=== PATIENT | male | born 1955 | race Hispanic/Latino ===

== ENCOUNTER 2021-12-12 13:09 | Emergency (ER) | payer BC, SELFPAY ==
[2021-12-12 13:51] LABS: #Basophils 0.1 thou/uL (0.0-0.2); #Eosinphils 0.3 thou/uL (0.0-0.7); #Lymphocytes 2.9 thou/uL (1.20-3.40); #Monocytes 0.6 thou/uL (0.11-0.59); %Basophils 0.9 % (0.0-1.0); %Eosinophils 3.7 % (0.0-10.0); %Lymphocytes 32.3 % (21.0-51.0); %Monocytes 6.5 % (0.0-10.0); %Neutrophils 56.5 % (42.0-75.0); Mean Corpuscular HGB CONC 32.2 g/dL (32.0-36.0); Mean Corpuscular Hemoglobin 29.1 pg (27.0-31.0); Mean Corpuscular Volume 90.5 fL (78.0-98.0); Mean Platelet Volume 8.5 fL (7.4-10.4); Platelet Count 241 thou/uL (130-400); RBC Distribution Width 12.7 % (11.5-14.5); Red Blood Cell (RBC) Count 5.16 mill/uL (4.70-6.10); White Blood Cell (WBC) Count 8.9 thou/uL (4.8-10.8)
[2021-12-12 14:12] LABS: ALT (SGPT) 14 U/L (8-55); AST (SGOT) 16 U/L (5-34); Alkaline Phosphatase 52 U/L (40-110); Anion Gap 15 mmol/L (10-20); BUN (Urea Nitrogen) 20 mg/dL (8.4-25.7); Bilirubin, Total 0.7 mg/dL (0.2-1.2); Calc. Creatinine Clearance 0 mL/min (70-130); Calcium 9.5 mg/dL (7.8-10.44); Carbon Dioxide 26 mmol/L (23-31); Chloride 101 mmol/L (98-107); Estimated GFR 63; Globulin 3.7 g/dL (2.4-3.5); Glucose 176 mg/dL (80-115); Potassium 4.5 mmol/L (3.5-5.1); Protein, Total 7.7 g/dL (5.8-8.1); Sodium 137 mmol/L (136-145)
== END 2021-12-12 16:31 | disposition home or self-care (01) ==
LOC: ERS 13:09
DX: E11.621 Type 2 diabetes mellitus with foot ulcer (principal); L97.529 Non-pressure chronic ulcer of other part of left foot with unspecified severity; L03.031 Cellulitis of right toe; I10 Essential (primary) hypertension
CPT/HCPCS: 36415; 80053; 83605; 85025; 99283

== ENCOUNTER 2023-04-18 21:48 | Inpatient (IN) | payer OTHER, SELFPAY ==
[2023-04-18 23:51] VITALS: BMI 27.5
[2023-04-19] MEDS ORDERED: Dextrose 5% in Water 1,000 ML IV PRN (01:21)
[2023-04-19] MEDS ORDERED: Ondansetron PF 4 MG/2 ML Vial IVP PRN (01:21)
[2023-04-19] MEDS ORDERED: HumaLOG 300 UNITS/3 ML VIAL SC PRN (01:21)
[2023-04-19] MEDS ORDERED: Ondansetron ODT 4 MG TAB PO PRN (01:21)
[2023-04-19] MEDS ORDERED: Dextrose 50% Abboject 50 ML SYRINGE SLOW IVP PRN (01:21)
[2023-04-19] MEDS ORDERED: Acetaminophen 650 MG Suppository PR PRN (01:21)
[2023-04-19] MEDS ORDERED: Glucagon 1 MG/ML KIT IM PRN (01:21)
[2023-04-19] MEDS: Sodium Chloride 0.9% 1,000 ML IV SCH ×2 (02:22→10:44)
[2023-04-19] MEDS: Piperacillin/Tazobactam 3.375 GM in Sodium Chloride 0.9% 100 ML IVPB SCH ×3 (03:05→17:47)
[2023-04-19] MEDS: Vancomycin (BATCH) 1.25 GM in Premix 1 BAG IVPB SCH ×2 (03:06→13:22)
[2023-04-19] MEDS: Acetaminophen 325 MG TAB PO PRN ×2 (03:49→16:49)
[2023-04-19] MEDS ORDERED: Ketorolac Tromethamine 30 MG/ML VIAL IVP PRN (04:41)
[2023-04-19 06:05] LABS: #Basophils 0.1 thou/uL (0.0-0.2); #Eosinphils 0.1 thou/uL (0.0-0.7); #Monocytes 1.5 thou/uL (0.11-0.59); #Neutrophils 11.9 thou/uL (1.40-6.50); %Basophils 0.6 % (0.0-1.0); %Eosinophils 0.5 % (0.0-10.0); %Lymphocytes 15.1 % (21.0-51.0); %Monocytes 9.5 % (0.0-10.0); %Neutrophils 73.9 % (42.0-75.0); Hematocrit 38.9 % (42.0-52.0); Mean Corpuscular HGB CONC 33.4 g/dL (32.0-36.0); Mean Corpuscular Hemoglobin 28.4 pg (27.0-31.0); Mean Corpuscular Volume 85.1 fl (78.0-98.0); Platelet Count 265 10x3/uL (130-400); RBC Distribution Width 13.5 % (11.5-14.5); Red Blood Cell (RBC) Count 4.57 mill/uL (4.70-6.10)
[2023-04-19 06:37] LABS: Anion Gap 12 mmol/L (10-20); BUN (Urea Nitrogen) 17 mg/dL (8.4-25.7); Calc. Creatinine Clearance 71 mL/min (70-130); Calcium 8.1 mg/dL (7.8-10.44); Carbon Dioxide 23 mmol/L (23-31); Chloride 103 mmol/L (98-107); Estimated GFR 65; Glucose 122 mg/dL (80-115); Potassium 3.4 mmol/L (3.5-5.1); Sodium 135 mmol/L (136-145)
[2023-04-19] MEDS ORDERED: Pantoprazole 40 MG VIAL IVP SCH (09:00)
[2023-04-19] MEDS: Lisinopril 10 MG TAB PO SCH (09:11)
[2023-04-19] MEDS: Fish Oil 1,000 MG CAP PO SCH ×2 (09:11→21:13)
[2023-04-19] MEDS ORDERED: Potassium Chloride 20 MEQ TAB PO SCH (13:00)
[2023-04-19] MEDS: HumaLOG 300 UNITS/3 ML VIAL SC PRN (13:23)
[2023-04-19] MEDS: glipiZIDE 5 MG TAB PO SCH (16:49)
[2023-04-19] MEDS ORDERED: METFORMIN PO SCH (17:00)
[2023-04-19] MEDS ORDERED: CANAGLIFLOZIN PO SCH (17:00)
[2023-04-19] MEDS ORDERED: [UNRECOGNIZED DRUG - OTHER] PO SCH (17:00)
[2023-04-19] MEDS ORDERED: Gabapentin 100 MG CAP PO PRN (17:38)
[2023-04-19] MEDS: Gabapentin 100 MG CAP PO PRN (17:46)
[2023-04-19] MEDS ORDERED: Ibuprofen 200 MG TAB PO SCH (18:15)
[2023-04-20] MEDS: Vancomycin (BATCH) 1.25 GM in Premix 1 BAG IVPB SCH ×2 (02:02→14:57)
[2023-04-20] MEDS: Piperacillin/Tazobactam 3.375 GM in Sodium Chloride 0.9% 100 ML IVPB SCH ×3 (02:11→17:34)
[2023-04-20] MEDS: Acetaminophen 325 MG TAB PO PRN ×2 (04:50→16:37)
[2023-04-20 05:48] LABS: #Basophils 0.1 thou/uL (0.0-0.2); #Eosinphils 0.2 thou/uL (0.0-0.7); #Monocytes 1.3 thou/uL (0.11-0.59); #Neutrophils 13.1 thou/uL (1.40-6.50); %Basophils 0.4 % (0.0-1.0); %Eosinophils 0.9 % (0.0-10.0); %Lymphocytes 9.3 % (21.0-51.0); Hematocrit 40.2 % (42.0-52.0); Hemoglobin 13.3 g/dL (14.0-18.0); Mean Corpuscular HGB CONC 33.1 g/dL (32.0-36.0); Mean Corpuscular Hemoglobin 28.1 pg (27.0-31.0); Mean Corpuscular Volume 84.8 fl (78.0-98.0); Mean Platelet Volume 10.1 fL (7.4-10.4); Platelet Count 279 10x3/uL (130-400); RBC Distribution Width 13.3 % (11.5-14.5); Red Blood Cell (RBC) Count 4.74 mill/uL (4.70-6.10); White Blood Cell (WBC) Count 16.1 10x3/uL (4.8-10.8)
[2023-04-20 06:30] LABS: Anion Gap 14 mmol/L (10-20); BUN (Urea Nitrogen) 18 mg/dL (8.4-25.7); Calc. Creatinine Clearance 70 mL/min (70-130); Calcium 8.5 mg/dL (7.8-10.44); Carbon Dioxide 21 mmol/L (23-31); Chloride 104 mmol/L (98-107); Estimated GFR 64; Glucose 124 mg/dL (80-115); Sodium 135 mmol/L (136-145)
[2023-04-20] MEDS: glipiZIDE 5 MG TAB PO SCH ×2 (06:30→16:37)
[2023-04-20] MEDS: Lisinopril 10 MG TAB PO SCH (08:36)
[2023-04-20] MEDS: Fish Oil 1,000 MG CAP PO SCH ×2 (08:36→20:55)
[2023-04-20 13:32] LABS: Vancomycin, Trough 17.9 ug/mL
[2023-04-20] MEDS ORDERED: Polyethylene Glycol 3350 17 GM Packet PO SCH (18:00)
[2023-04-20] MEDS: Ibuprofen 200 MG TAB PO PRN (18:11)
[2023-04-20] MEDS: hydrALAZINE 25 MG TAB PO SCH (20:54)
[2023-04-21] MEDS: Piperacillin/Tazobactam 3.375 GM in Sodium Chloride 0.9% 100 ML IVPB SCH ×3 (01:01→17:20)
[2023-04-21] MEDS: Vancomycin (BATCH) 1.25 GM in Premix 1 BAG IVPB SCH ×2 (01:02→14:47)
[2023-04-21 06:52] LABS: #Basophils 0.1 thou/uL (0.0-0.2); #Eosinphils 0.4 thou/uL (0.0-0.7); #Monocytes 1.3 thou/uL (0.11-0.59); #Neutrophils 10.7 thou/uL (1.40-6.50); %Basophils 0.5 % (0.0-1.0); %Eosinophils 2.9 % (0.0-10.0); %Lymphocytes 14.1 % (21.0-51.0); %Monocytes 8.6 % (0.0-10.0); %Neutrophils 73.5 % (42.0-75.0); Hematocrit 38.9 % (42.0-52.0); Hemoglobin 13.3 g/dL (14.0-18.0); Mean Corpuscular HGB CONC 34.2 g/dL (32.0-36.0); Mean Corpuscular Hemoglobin 28.4 pg (27.0-31.0); Mean Corpuscular Volume 83.1 fl (78.0-98.0); Platelet Count 314 10x3/uL (130-400); RBC Distribution Width 13.2 % (11.5-14.5); Red Blood Cell (RBC) Count 4.68 mill/uL (4.70-6.10); White Blood Cell (WBC) Count 14.6 10x3/uL (4.8-10.8)
[2023-04-21 07:18] LABS: Anion Gap 12 mmol/L (10-20); BUN (Urea Nitrogen) 14 mg/dL (8.4-25.7); Calc. Creatinine Clearance 84 mL/min (70-130); Calcium 8.6 mg/dL (7.8-10.44); Carbon Dioxide 26 mmol/L (23-31); Chloride 102 mmol/L (98-107); Estimated GFR 80; Glucose 128 mg/dL (80-115); Potassium 3.8 mmol/L (3.5-5.1); Sodium 136 mmol/L (136-145)
[2023-04-21] MEDS ORDERED: Promethazine HCl 25 MG/ML VIAL IM PRN (07:53)
[2023-04-21] MEDS ORDERED: Ondansetron HCl/PF 4 MG/2 ML Vial IVP PRN (07:53)
[2023-04-21] MEDS ORDERED: Meperidine HCl/PF 25 MG/ML VIAL SLOW IVP PRN ×2 (07:53)
[2023-04-21] MEDS ORDERED: HYDROmorphone 2 MG/ML VIAL SLOW IVP PRN (07:53)
[2023-04-21] MEDS ORDERED: Lidocaine 1% PF 5 ML VIAL ONE ×2 (07:59→08:00)
[2023-04-21] MEDS ORDERED: PROPOFOL 200 MG/20 ML VIAL ONE (07:59)
[2023-04-21] MEDS ORDERED: Ondansetron PF 4 MG/2 ML Vial ONE ×2 (07:59→08:00)
[2023-04-21] MEDS ORDERED: ePHEDrine Sulfate 50 MG/10 ML VIAL ONE ×2 (07:59→08:26)
[2023-04-21] MEDS ORDERED: PROPOFOL 20 ML ONE (08:00)
[2023-04-21] MEDS ORDERED: fentaNYL 50 mcg/mL 1 mL Vial ONE (08:00)
[2023-04-21] MEDS ORDERED: Midazolam HCl 2 mg/2 ml Vial ONE (08:00)
[2023-04-21] MEDS ORDERED: Polyethylene Glycol 3350 17 GM Packet PO SCH (09:00)
[2023-04-21] MEDS ORDERED: hydrALAZINE 20 MG/ML VIAL SLOW IVP PRN (09:06)
[2023-04-21] MEDS: glipiZIDE 5 MG TAB PO SCH ×2 (09:11→16:56)
[2023-04-21] MEDS: hydrALAZINE 25 MG TAB PO SCH ×3 (09:11→20:41)
[2023-04-21] MEDS: Fish Oil 1,000 MG CAP PO SCH ×2 (09:12→20:41)
[2023-04-21] MEDS: Lisinopril 10 MG TAB PO SCH (09:12)
[2023-04-21] MEDS: HumaLOG 300 UNITS/3 ML VIAL SC PRN ×2 (12:53→16:56)
[2023-04-21] MEDS: traMADol HCl 50 MG TAB PO PRN (12:56)
[2023-04-21] MEDS ORDERED: Polyethylene Glycol 3350 17 GM Packet PO PRN (16:17)
[2023-04-21] MEDS: Acetaminophen 325 MG TAB PO PRN (22:10)
[2023-04-21] MEDS: Gabapentin 100 MG CAP PO PRN (22:12)
[2023-04-22] MEDS: Piperacillin/Tazobactam 3.375 GM in Sodium Chloride 0.9% 100 ML IVPB SCH ×2 (01:20→09:38)
[2023-04-22 01:50] LABS: #Basophils 0.1 thou/uL (0.0-0.2); #Eosinphils 0.5 thou/uL (0.0-0.7); #Monocytes 1.4 thou/uL (0.11-0.59); #Neutrophils 9.2 thou/uL (1.40-6.50); %Basophils 0.5 % (0.0-1.0); %Eosinophils 3.3 % (0.0-10.0); %Lymphocytes 19.8 % (21.0-51.0); %Monocytes 9.8 % (0.0-10.0); %Neutrophils 66.3 % (42.0-75.0); Hematocrit 36.8 % (42.0-52.0); Hemoglobin 12.4 g/dL (14.0-18.0); Mean Corpuscular HGB CONC 33.7 g/dL (32.0-36.0); Mean Corpuscular Hemoglobin 28.5 pg (27.0-31.0); Mean Corpuscular Volume 84.6 fl (78.0-98.0); Mean Platelet Volume 9.7 fL (7.4-10.4); Platelet Count 314 10x3/uL (130-400); RBC Distribution Width 13.2 % (11.5-14.5); Red Blood Cell (RBC) Count 4.35 mill/uL (4.70-6.10); White Blood Cell (WBC) Count 13.9 10x3/uL (4.8-10.8)
[2023-04-22 02:07] LABS: Hemoglobin A1c 7.4 % (4.0-6.0)
[2023-04-22 02:10] LABS: Vancomycin, Trough 15.3 ug/mL
[2023-04-22 02:15] LABS: Anion Gap 15 mmol/L (10-20); BUN (Urea Nitrogen) 13 mg/dL (8.4-25.7); Calc. Creatinine Clearance 71 mL/min (70-130); Calcium 8.3 mg/dL (7.8-10.44); Carbon Dioxide 22 mmol/L (23-31); Chloride 101 mmol/L (98-107); Estimated GFR 65; Glucose 144 mg/dL (80-115); Potassium 3.5 mmol/L (3.5-5.1); Sodium 134 mmol/L (136-145)
[2023-04-22] MEDS: Vancomycin (BATCH) 1.25 GM in Premix 1 BAG IVPB SCH ×2 (02:41→14:54)
[2023-04-22] MEDS: Fish Oil 1,000 MG CAP PO SCH ×2 (09:38→20:08)
[2023-04-22] MEDS: Lisinopril 20 MG TAB PO SCH (09:38)
[2023-04-22] MEDS: hydrALAZINE 25 MG TAB PO SCH ×3 (09:38→20:08)
[2023-04-22] MEDS: glipiZIDE 5 MG TAB PO SCH ×2 (09:38→17:23)
[2023-04-22] MEDS: traMADol HCl 50 MG TAB PO PRN (17:22)
[2023-04-22] MEDS: HumaLOG 300 UNITS/3 ML VIAL SC PRN (17:23)
[2023-04-23] MEDS: Vancomycin (BATCH) 1.25 GM in Premix 1 BAG IVPB SCH (01:34)
[2023-04-23] MEDS: HumaLOG 300 UNITS/3 ML VIAL SC PRN ×2 (05:34→17:42)
[2023-04-23 06:40] LABS: #Basophils 0.1 thou/uL (0.0-0.2); #Eosinphils 0.5 thou/uL (0.0-0.7); #Monocytes 1.1 thou/uL (0.11-0.59); %Basophils 0.5 % (0.0-1.0); %Eosinophils 4.6 % (0.0-10.0); %Lymphocytes 20.9 % (21.0-51.0); %Neutrophils 63.5 % (42.0-75.0); Hematocrit 37.9 % (42.0-52.0); Hemoglobin 12.3 g/dL (14.0-18.0); Mean Corpuscular HGB CONC 32.5 g/dL (32.0-36.0); Mean Corpuscular Hemoglobin 27.8 pg (27.0-31.0); Mean Corpuscular Volume 85.7 fl (78.0-98.0); Platelet Count 346 10x3/uL (130-400); RBC Distribution Width 13.4 % (11.5-14.5); Red Blood Cell (RBC) Count 4.42 mill/uL (4.70-6.10)
[2023-04-23 07:06] LABS: Anion Gap 13 mmol/L (10-20); BUN (Urea Nitrogen) 10 mg/dL (8.4-25.7); Calc. Creatinine Clearance 87 mL/min (70-130); Calcium 8.3 mg/dL (7.8-10.44); Carbon Dioxide 25 mmol/L (23-31); Chloride 102 mmol/L (98-107); Estimated GFR 83; Glucose 171 mg/dL (80-115); Potassium 3.5 mmol/L (3.5-5.1); Sodium 136 mmol/L (136-145)
[2023-04-23] MEDS: Lisinopril 20 MG TAB PO SCH (08:03)
[2023-04-23] MEDS: Fish Oil 1,000 MG CAP PO SCH ×2 (08:04→20:40)
[2023-04-23] MEDS: hydrALAZINE 25 MG TAB PO SCH ×3 (08:04→20:40)
[2023-04-23] MEDS: glipiZIDE 5 MG TAB PO SCH ×2 (08:04→17:42)
[2023-04-23] MEDS ORDERED: Vancomycin (BATCH) 1.25 GM in Premix 1 BAG IVPB SCH (12:45)
[2023-04-23] MEDS: traMADol HCl 50 MG TAB PO PRN ×2 (13:11→20:46)
[2023-04-23 13:45] LABS: Vancomycin, Trough 20.3 ug/mL
[2023-04-23] MEDS ORDERED: Vancomycin 1 GM in Premix 1 BAG IVPB SCH (16:00)
[2023-04-23] MEDS ORDERED: Vancomycin HCl 750 MG in Sodium Chloride 0.9% 250 ML 250 ML IVPB SCH (16:00)
[2023-04-23] MEDS: Cephalexin 250 MG CAP PO SCH ×2 (17:42→20:40)
[2023-04-23] MEDS: Acetaminophen 325 MG TAB PO PRN (20:46)
[2023-04-24 06:08] LABS: #Basophils 0.1 thou/uL (0.0-0.2); #Eosinphils 0.6 thou/uL (0.0-0.7); #Neutrophils 5.3 thou/uL (1.40-6.50); %Basophils 0.8 % (0.0-1.0); %Eosinophils 6.3 % (0.0-10.0); %Lymphocytes 26.6 % (21.0-51.0); %Monocytes 10.8 % (0.0-10.0); Hematocrit 37.3 % (42.0-52.0); Hemoglobin 12.1 g/dL (14.0-18.0); Mean Corpuscular HGB CONC 32.4 g/dL (32.0-36.0); Mean Corpuscular Hemoglobin 27.6 pg (27.0-31.0); Mean Corpuscular Volume 85.2 fl (78.0-98.0); Mean Platelet Volume 10.2 fL (7.4-10.4); Platelet Count 330 10x3/uL (130-400); RBC Distribution Width 13.4 % (11.5-14.5); Red Blood Cell (RBC) Count 4.38 mill/uL (4.70-6.10); White Blood Cell (WBC) Count 9.6 10x3/uL (4.8-10.8)
[2023-04-24 06:33] LABS: Anion Gap 11 mmol/L (10-20); BUN (Urea Nitrogen) 10 mg/dL (8.4-25.7); Calc. Creatinine Clearance 81 mL/min (70-130); Calcium 8.3 mg/dL (7.8-10.44); Carbon Dioxide 28 mmol/L (23-31); Chloride 98 mmol/L (98-107); Estimated GFR 77; Glucose 171 mg/dL (80-115); Potassium 3.6 mmol/L (3.5-5.1); Sodium 133 mmol/L (136-145)
[2023-04-24] MEDS: traMADol HCl 50 MG TAB PO PRN ×2 (08:23→14:01)
[2023-04-24] MEDS: Cephalexin 250 MG CAP PO SCH ×2 (08:23→13:15)
[2023-04-24] MEDS: glipiZIDE 5 MG TAB PO SCH (08:24)
[2023-04-24] MEDS: hydrALAZINE 25 MG TAB PO SCH ×2 (08:24→14:01)
[2023-04-24] MEDS: Lisinopril 20 MG TAB PO SCH (08:24)
[2023-04-24] MEDS: Fish Oil 1,000 MG CAP PO SCH (08:24)
[2023-04-24] MEDS: HumaLOG 300 UNITS/3 ML VIAL SC PRN (13:16)
[2023-04-24] MEDS: Ibuprofen 200 MG TAB PO PRN (13:21)
[2023-04-24 13:24] VITALS: TEMP 98
[2023-04-24 14:30] VITALS: BP 173/86
== END 2023-04-24 14:58 | disposition home or self-care (01) | DRG 854 ==
LOC: T4-A 23:39 → OBSVTOIN 04-19 01:21
PROVIDERS: ADMIT Student in an Organized Health Care Education/Training Program; ATTEND Hospitalist
PROC: 3E03329 Introduction of Other Anti-infective into Peripheral Vein, Percutaneous Approach (ICD-10-PCS; 2023-04-19)
PROC: 3E033XZ Introduction of Vasopressor into Peripheral Vein, Percutaneous Approach (ICD-10-PCS; 2023-04-19)
PROC: 0JCQ0ZZ Extirpation of Matter from Right Foot Subcutaneous Tissue and Fascia, Open Approach (ICD-10-PCS; principal; 2023-04-21)
PROC: 0J9Q0ZZ Drainage of Right Foot Subcutaneous Tissue and Fascia, Open Approach (ICD-10-PCS; 2023-04-21)
DX: A41.01 Sepsis due to Methicillin susceptible Staphylococcus aureus (principal); L02.611 Cutaneous abscess of right foot; L03.115 Cellulitis of right lower limb; A40.0 Sepsis due to streptococcus, group A; E11.628 Type 2 diabetes mellitus with other skin complications; I10 Essential (primary) hypertension; E78.5 Hyperlipidemia, unspecified; S91.302A Unspecified open wound, left foot, initial encounter; M54.9 Dorsalgia, unspecified; G89.29 Other chronic pain; M81.0 Age-related osteoporosis without current pathological fracture; M79.5 Residual foreign body in soft tissue; G47.33 Obstructive sleep apnea (adult) (pediatric); Z79.84 Long term (current) use of oral hypoglycemic drugs; Z79.899 Other long term (current) drug therapy; Z98.890 Other specified postprocedural states
CPT/HCPCS: 36415; 36416; 80048; 80053; 80202; 81001; 83036; 83605; 85025; 86140; 87040; 87070; 87077; 87081; 87086; 87186; 87205; 96365; 96367; 97139; C9113; J1650; J1815; J2250; J2405; J2543; J2704; J3010; J3370; J3370-JW; J3490; J7050

== ENCOUNTER 2025-03-10 15:33 | Emergency (ER) | payer MEDICARE, OTHER ==
[2025-03-10] MEDS ORDERED: HYDROcodone/Acetaminophen 5/325 mg Tablet ONE (17:07)
== END 2025-03-10 17:19 | disposition home or self-care (01) ==
LOC: ERS 15:33
DX: L02.811 Cutaneous abscess of head [any part, except face] (principal)
CPT/HCPCS: 87070; 87077; 87186; 87205; 99283